=== PATIENT | male | born 2000 | race Two or more races ===

== ENCOUNTER 2023-09-01 20:08 | Emergency (ER) | payer SELFPAY ==
[~2023-09-01] VITALS: Ht 172.7 cm; Wt 84.1 kg
[2023-09-01 20:17] VITALS: BP 136/78; PULSE 96; RESP 16; TEMP 99.8
== END 2023-09-01 20:58 | disposition left against medical advice (07) ==
LOC: EMS 20:09
DX: M54.50 Low back pain, unspecified (principal); Z53.21 Procedure and treatment not carried out due to patient leaving prior to being seen by health care provider
CPT/HCPCS: 99281; Z7502